=== PATIENT | female | born 1965 | race American Indian/Alaskan Native ===

== ENCOUNTER 2020-03-13 10:32 | Inpatient (IN) | payer SELFPAY ==
--- NOTE | 2020-03-13 10:59 | Cat Scan Report ---
NONENHANCED CT SCAN OF THE HEAD: INDICATION / CLINICAL INFORMATION: 54 years Female; not available TECHNIQUE: Routine CT head without contrast. All CT scans at this location are performed using CT dos e reduction for ALARA by means of automated exposure control. COMPARISON: None. FINDINGS: BRAIN / INTRACRANIAL CONTENTS: No acute hemorrhage, mass effect, midline shift, hydrocephalus, or ac [place], large territorial infarct. No chronic infarct or focal atrophy. Normal brain volume and ventricu lar/sulcal size for age. Subtle patchy white matter low-attenuation seen around the atria of the late ral ventricles probably due to chronic small vessel disease. CRANIOCERVICAL JUNCTION: No significant abnormality. ORBITS: No significant abnormality of visualized orbits. SINUSES / MASTOIDS: No significant abnormality of the visualized paranasal sinuses or mastoid air lashawn ls. ADDITIONAL FINDINGS: None. IMPRESSION: No acute focal parenchymal lesion in the brain Signer Name: Debbie Larose MD Signed: 03/13/2020 10:55 AM Workstation Name: [id number]
[2020-03-13 11:09] LABS: Basophils # (Auto) 0.1 K/mm3 (0.0-0.1); Basophils % (Auto) 0.8 % (0.0-1.8); Hemoglobin 11.1 gm/dl (10.1-14.3); Lymphocytes # (Auto) 1.1 K/mm3 (1.2-5.4); Lymphocytes % (Auto) 15.8 % (13.4-35.0); Mean Corpuscular HGB Conc 32 % (30-34); Mean Corpuscular Volume 93 fl (79-97); Monocytes # (Auto) 0.2 K/mm3 (0.0-0.8); Monocytes % (Auto) 3.1 % (0.0-7.3); Platelet Count 482 K/mm3 (140-440); Red Blood Count 3.77 M/mm3 (3.65-5.03)
[2020-03-13] MEDS ORDERED: ASPIRIN 325 MG TAB PO ONE (11:12)
--- NOTE | 2020-03-13 11:13 | Consultation ---
History of Present Illness Consult date: 03/13/20 History of present illness: [facility] Tele[facility] Consult Services Date of Service: 03/13/2020 10:45:25 Impression: Rule Out Acute Ischemic Stroke Right Hemispheric Infarct MCA Distribution Infarct subcortical. Only known CV risk factor is age; she stopped aspirin two weeks ago for breast bx on 03/03. Comments/Sign-Out: She is outside window for TPA. Presentation is not suggestive of LVO. Metrics: Last Known Well: 03/12/2020 22:00:00 [facility] Notification Time: 03/13/2020 10:45:00 Arrival Time: 03/13/2020 10:32:00 Stamp Time: 03/13/2020 10:45:25 Time First Login Attempt: 03/13/2020 10:48:30 Video Start Time: 03/13/2020 10:50:42 Symptoms: right side weak, slurred speech NIHSS Start Assessment Time: 03/13/2020 10:53:31 Patient is not a candidate for tPA. Patient was not deemed candidate for tPA thrombolytics because of Last Well Known Above 4.5 Hours. Video End Time: 03/13/2020 11:04:24 CT head showed no acute hemorrhage or acute core infarct. Clinical Presentation is not Suggestive of Large Vessel Occlusive Disease ED Physician notified of diagnostic impression and management plan on 03/13/2020 11:04:27 Our recommendations are outlined below. Recommendations: Activate Stroke Protocol Admission/Order Set Stroke/Telemetry Floor Neuro Checks Bedside Swallow Eval DVT Prophylaxis IV Fluids, Normal Saline Head of Bed 30 Degrees Euglycemia and Avoid Hyperthermia (PRN Acetaminophen) defer to primary team to seek clearance with physician who did breast bx to resume aspirin 81mg qd Routine Consultation with Inhouse Neurology for Follow up Care Sign Out: Discussed with Emergency Department Provider History of Present Illness: Patient is a 54 year old Female. Patient was brought by EMS for symptoms of right side weak, slurred speech right handed woman current dx of intraductal papilloma of left breast s/p breast bx on 03/03 presents to ED for right side weakness/numbness, slurred speech noted at 22::00 yesterday. She was well just before 22:00. She denies hx of CAD, CV dz, HTN, DM, HLD. She was on aspirin daily empirically but stopped this two weeks ago for breast bx. Examination: BP(168/90), Blood Glucose(351) 1A: Level of Consciousness - Alert; keenly responsive + 0 1B: Ask Month and Age - Both Questions Right + 0 1C: Blink Eyes & Squeeze Hands - Performs Both Tasks + 0 2: Test Horizontal Extraocular Movements - Normal + 0 3: Test Visual [place] - No Visual Loss + 0 4: Test Facial Palsy (Use Grimace if Obtunded) - Normal symmetry + 0 5A: Test Left Arm Motor Drift - No Drift for 10 Seconds + 0 5B: Test Right Arm Motor Drift - Drift, but doesn't hit bed + 1 6A: Test Left Leg Motor Drift - No Drift for 5 Seconds + 0 6B: Test Right Leg Motor Drift - Drift, but doesn't hit bed + 1 7: Test Limb Ataxia (FNF/Heel-Contreras) - Ataxia in 1 Limb + 1 8: Test Sensation - Normal; No sensory loss + 0 9: Test Language/Aphasia - Normal; No aphasia + 0 10: Test Dysarthria - Mild-Moderate Dysarthria: Slurring but can be understood + 1 11: Test Extinction/Inattention - No abnormality + 0 NIHSS Score: 4 Patient/Family was informed the Neurology Consult would happen via TeleHealth consult by way of interactive audio and video telecommunications and consented to receiving care in this manner. Due to the immediate potential for life-threatening deterioration due to underlying acute neurologic illness, I spent 20 minutes providing critical care. This time includes time for face to face visit via telemedicine, review of medical records, imaging studies and discussion of findings with providers, the patient and/or family. Dr Lacy Lao [facility] Case [id number] Medications and Allergies Allergies Allergy/AdvReac Type Severity Reaction Status Date / Time hydrocodone Allergy Seizure Verified 03/13/20 10:38 Physical Examination - Vital Signs Vital Signs: Vital Signs Temp Pulse Resp BP Pulse Ox 98.0 F 100 H 18 158/89 100 03/13/20 10:35 03/13/20 10:35 03/13/20 10:35 03/13/20 10:35 03/13/20 10:35 Results - Laboratory Findings CBC and BMP: 03/13/20 10:48 Abnormal Lab Findings: Abnormal Labs 03/13/20 10:48 RDW 17.0 H Plt Count 482 H Lymph # 1.1 L Seg Neutrophils % 80.3 H
[2020-03-13] MEDS ORDERED: ONDANSETRON 4 MG/2 ML INJ IV ONE (11:15)
--- NOTE | 2020-03-13 11:17 | Emergency Department Report ---
HPI - General Chief Complaint: Neuro Symptoms/Deficit Time Seen by Provider: 03/13/20 10:54 - HPI HPI: Room 2 The patient is a 54-year-old female present with a chief complaint of right- sided weakness. Patient states her symptoms began last night at approximately 22: 00 with weakness and tingling of the right arm and right leg. Patient states she also experienced dysarthria. ED Past Medical Hx - Past Medical History Hx Diabetes: Yes - Surgical History Hx Breast Surgery: Yes (Left breast biopsy) - Family History Family history: no significant - Social History Smoking Status: Never Smoker Substance Use Type: None (Denies illicit drug use) ED Review of Systems ROS: Stated complaint: POSS STROKE Other details as noted in HPI Constitutional: no symptoms reported Eyes: denies: eye pain ENT: denies: throat pain Respiratory: no symptoms reported Cardiovascular: denies: chest pain Endocrine: no symptoms reported Gastrointestinal: denies: abdominal pain Genitourinary: denies: dysuria Musculoskeletal: denies: back pain Neurological: weakness, paresthesias Physical Exam - Physical Exam Vital Signs: Vital Signs 03/13/20 10:35 Temperature 98.0 F Pulse Rate 100 H Respiratory 18 Rate Blood Pressure 158/89 [Right] O2 Sat by Pulse 100 Oximetry Physical Exam: GENERAL: The patient is well-developed well-nourished female lying on stretcher not appearing to be in acute distress. [] HEENT: Normocephalic. Atraumatic. Extraocular motions are intact. Patient has moist mucous membranes. NECK: Supple. Trachea midline CHEST/LUNGS: Clear to auscultation. There is no respiratory distress noted. HEART/CARDIOVASCULAR: Regular. There is no tachycardia. There is no gallop rub or murmur. ABDOMEN: Abdomen is soft, nontender. Patient has normal bowel sounds. There is no abdominal distention. SKIN: There is no rash. There is no edema. There is no diaphoresis. NEURO: The patient is awake, alert, and oriented. The patient is cooperative. Cranial nerves II through XII grossly intact. The patient has normal speech. Patient exhibits greater difficulty flexing right lower extremity at the hip and knee when compared to the left. Patient is unable to raise right upper extremity above her head secondary to weakness MUSCULOSKELETAL: There is no evidence of acute injury. ED Course Vital Signs 03/13/20 10:35 Temperature 98.0 F Pulse Rate 100 H Respiratory 18 Rate Blood Pressure 158/89 [Right] O2 Sat by Pulse 100 Oximetry ED Medical Decision Making - Lab Data Result diagrams: 03/13/20 10:48 03/13/20 10:48 Laboratory Tests 03/13/20 03/13/20 03/13/20 10:48 10:48 10:48 WBC 7.1 RBC 3.77 Hgb 11.1 Hct 35.0 MCV 93 MCH 30 MCHC 32 RDW 17.0 H Plt Count 482 H Lymph % (Auto) 15.8 [place] % (Auto) 3.1 Eos % (Auto) 0.0 Baso % (Auto) 0.8 Lymph # 1.1 L [place] # 0.2 Eos # 0.0 Baso # 0.1 Seg Neutrophils % 80.3 H Seg Neutrophils # 5.7 PT 12.5 INR 0.95 APTT 22.9 L Sodium 134 L Potassium 4.5 Chloride 95.6 L Carbon Dioxide 20 L Anion Gap 23 BUN 11 Creatinine 0.7 Estimated GFR > 60 BUN/Creatinine Ratio 16 Glucose 377 H Calcium 10.4 H Troponin T < 0.010 - EKG Data -: EKG Interpreted by Me EKG shows normal: sinus rhythm Rate: normal - EKG Data When compared to previous EKG there are: previous EKG unavailable Interpretation: other (No ischemic changes seen) - Differential Diagnosis CVA Critical care attestation.: If time is entered above; I have spent that time in minutes in the direct care of this critically ill patient, excluding procedure time. ED Disposition Clinical Impression: CVA (cerebral vascular accident) Disposition: -09 OP ADMIT IP TO THIS HOSP Is pt being admited?: Yes Does the pt Need Aspirin: Yes Condition: Fair Referrals: CLOVIS SABA MD [Primary Care Provider] - 3-5 Days Time of Disposition: 11:47 (Hospitalist paged)
[2020-03-13 11:28] LABS: BUN/Creatinine Ratio 16; Blood Urea Nitrogen 11 mg/dL (7-17); Calcium 10.4 mg/dL (8.4-10.2); Hemolysis Index 2
[2020-03-13 11:44] LABS: INR 0.95 (0.87-1.13)
[2020-03-13 11:45] LABS: Partial Thromboplastin Time 22.9 Sec. (24.2-36.6)
[2020-03-13] MEDS ORDERED: INSULIN REGULAR, HUMAN 100 UNITS/1 ML IV ONE (12:02)
[2020-03-13] MEDS ORDERED: DEXTROSE 50% IN WATER (25GM) 50 ML SYRINGE IV PRN ×2 (12:16→15:22)
[2020-03-13] MEDS ORDERED: INSULIN REGULAR, HUMAN 100 UNITS/1 ML ONE (12:16)
[2020-03-13] MEDS ORDERED: SENNOSIDES 8.6 MG TAB PO PRN (12:16)
[2020-03-13] MEDS ORDERED: ONDANSETRON 4 MG/2 ML INJ IV PRN (12:16)
[2020-03-13] MEDS ORDERED: PROMETHAZINE 25 MG RECT SUPP PR PRN (12:16)
[2020-03-13] MEDS ORDERED: ACETAMINOPHEN 325 MG TAB PO PRN ×2 (12:16→12:21)
[2020-03-13] MEDS ORDERED: MAGNESIUM HYDROXIDE (MOM) ORAL LIQD UDC PO PRN (12:16)
[2020-03-13] MEDS ORDERED: ALBUTEROL 2.5 MG/3 ML NEBU IH PRN (12:16)
--- NOTE | 2020-03-13 12:21 | History and Physical Report ---
History of Present Illness Date of examination: 03/13/20 Date of admission: 03/13/20 11:49 Chief complaint: Right-sided weakness. Slurred speech. Left facial droop History of present illness: Patient is a 54-year-old female with past medical history of according to the patient borderline diabetes not on any medication who presented to the ER with complaint of right-sided weakness and slurred speech and also left facial droop. Per the patient this started 10 PM last night she thought she was not feeling well but decided to take a nap. On waking up this morning she had difficulty finding words she noted his speech was slurred and she had both right upper and lower extremity weakness. She presented to the ER for evaluation was noted to have a left facial droop and was recommended for admission for possible CVA. Of note the patient has been on 160 mg of aspirin as she states that she takes 2 daily tablets at home but had stopped this for breast biopsy was planned for March 03. She is not clear to me why she is on this dose of aspirin at home. At this point she denies any other issues she reports some improvement in her dysarthria. But still with weakness and tingling and on the right upper and lower extremity. Past History Past Medical History: diabetes Past Surgical History: hysterectomy, Other (Breast biopsy) Social history: no significant social history Family history: no significant family history Medications and Allergies Allergies Allergy/AdvReac Type Severity Reaction Status Date / Time hydrocodone Allergy Seizure Verified 03/13/20 10:38 Active Meds: Active Medications Acetaminophen (Tylenol) 650 mg PO Q4H PRN PRN Reason: Pain, Mild (1-3) Bisacodyl (Dulcolax) 10 mg AR QDAY PRN PRN Reason: Constipation Magnesium Hydroxide (Milk Of Magnesia) 30 ml PO Q4H PRN PRN Reason: Constipation Sodium Chloride (Sodium Chloride Flush Syringe 10 Ml) 10 ml INJ PRN PRN PRN Reason: LINE FLUSH Review of Systems All systems: negative Constitutional: weight loss (She has lost 15 pounds purposefully), weakness (Right upper and lower extremity), no weight gain, no fever, no chills, no sweats, no fatigue Cardiovascular: no chest pain, no rapid/irregular heart beat Respiratory: no cough with sputum, no shortness of breath, no dyspnea on exertion, no congestion Musculoskeletal: arm numbness/tingling (Right-sided), leg numbness/tingling (Right sided), no shooting leg pain, no frequent falls Neurological: weakness, parathesias (Right sided), numbness ( right-sided right-sided), change in speech, sensory deficit (Right-sided) Psychiatric: no anxiety, no memory loss, no change in sleep habits Exam - Physical Exam Narrative exam: VITAL SIGNS: Reviewed. GENERAL: The patient appears normally developed, Vital signs as documented. HEAD: No signs of head trauma. EYES: Pupils are equal. Extraocular motions intact. EARS: Hearing grossly intact. MOUTH: Oropharynx is normal. NECK: No adenopathy, no JVD. CHEST: Chest with clear breath sounds bilaterally. No wheezes, rales, or rhonchi. CARDIAC: Regular rate and rhythm. S1 and S2, without murmurs, gallops, or r ubs. VASCULAR: No Edema. Peripheral pulses normal and equal in all extremities. ABDOMEN: Soft, non tender and non distended. No rebound or guarding, and no masses palpated. Bowel Sounds normal. MUSCULOSKELETAL: Good range of motion of all major joints. Extremities without clubbing, cyanosis or edema. NEUROLOGIC EXAM: Alert and oriented x 3 4/5 motor strength in the right upper and lower extremity 5/5 on the left. Dysarthric speech with notable left facial droop however mild . Follows commands. PSYCHIATRIC: Mood normal. SKIN: detail exam as documented in skin assessment - Constitutional Vitals: Temp Pulse Resp BP Pulse Ox 98.0 F 95 H 16 168/91 100 03/13/20 10:35 03/13/20 11:14 03/13/20 11:14 03/13/20 11:14 03/13/20 11:14 HEART Score - HEART Score Troponin: Troponin T < 0.010 ng/mL (0.00-0.029) 03/13/20 10:48 Results - Labs CBC & Chem 7: 03/13/20 10:48 03/13/20 10:48 Labs: Laboratory Last Values WBC 7.1 K/mm3 (4.5-11.0) 03/13/20 10:48 RBC 3.77 M/mm3 (3.65-5.03) 03/13/20 10:48 Hgb 11.1 gm/dl (10.1-14.3) 03/13/20 10:48 Hct 35.0 % (30.3-42.9) 03/13/20 10:48 MCV 93 fl (79-97) 03/13/20 10:48 MCH 30 pg (28-32) 03/13/20 10:48 MCHC 32 % (30-34) 03/13/20 10:48 RDW 17.0 % (13.2-15.2) H 03/13/20 10:48 Plt Count 482 K/mm3 (140-440) H 03/13/20 10:48 Lymph % (Auto) 15.8 % (13.4-35.0) 03/13/20 10:48 [place] % (Auto) 3.1 % (0.0-7.3) 03/13/20 10:48 Eos % (Auto) 0.0 % (0.0-4.3) 03/13/20 10:48 Baso % (Auto) 0.8 % (0.0-1.8) 03/13/20 10:48 Lymph # 1.1 K/mm3 (1.2-5.4) L 03/13/20 10:48 [place] # 0.2 K/mm3 (0.0-0.8) 03/13/20 10:48 Eos # 0.0 K/mm3 (0.0-0.4) 03/13/20 10:48 Baso # 0.1 K/mm3 (0.0-0.1) 03/13/20 10:48 Seg Neutrophils % 80.3 % (40.0-70.0) H 03/13/20 10:48 Seg Neutrophils # 5.7 K/mm3 (1.8-7.7) 03/13/20 10:48 PT 12.5 Sec. (12.2-14.9) 03/13/20 10:48 INR 0.95 (0.87-1.13) 03/13/20 10:48 APTT 22.9 Sec. (24.2-36.6) L 03/13/20 10:48 Sodium 134 mmol/L (137-145) L 03/13/20 10:48 Potassium 4.5 mmol/L (3.6-5.0) 03/13/20 10:48 Chloride 95.6 mmol/L (98-107) L 03/13/20 10:48 Carbon Dioxide 20 mmol/L (22-30) L 03/13/20 10:48 Anion Gap 23 mmol/L 03/13/20 10:48 BUN 11 mg/dL (7-17) 03/13/20 10:48 Creatinine 0.7 mg/dL (0.7-1.2) 03/13/20 10:48 Estimated GFR > 60 ml/min 03/13/20 10:48 BUN/Creatinine Ratio 16 % 03/13/20 10:48 Glucose 377 mg/dL (65-100) H 03/13/20 10:48 POC Glucose 353 (70-105) H 03/13/20 12:14 Calcium 10.4 mg/dL (8.4-10.2) H 03/13/20 10:48 Troponin T < 0.010 ng/mL (0.00-0.029) 03/13/20 10:48 - Imaging and Cardiology CT Scan - head: image reviewed (No acute pathology) MRI - head: pending Assessment and Plan Assessment and plan: 54-year-old female with past medical history of diabetes undiagnosed not on any medication presenting to the ED with right upper and lower extremity weakness, dysarthria. Recently stopped aspirin 162 mg a week ago for a breast biopsy that was done on March 03. Unfortunately had not restarted this. Not sure why she was on aspirin in the first place. Right hemiparesis Strongly suspect CVA Diabetes mellitus with hyperglycemia new diagnosis Status post hysterectomy Recent breast biopsy Morbidly obese Plan of care. Admit to telemetry Stroke protocol Aspirin, statin therapy Neurology consult Obtain MRI of the head and MRA of the head and neck carotid ultrasound and echocardiogram check lipid profile Check A1c start on sliding scale coverage. Diabetic education PT OT evaluation and treat Plan of care discussed in detail with the patient Advance Directives: Yes Plan of care discussed with patient/family: Yes
--- NOTE | 2020-03-13 13:43 | Vascular Lab Report ---
"DUPLEX DOPPLER ULTRASOUND CAROTID, BILATERAL INDICATION: Stroke. Left-sided weakness. COMPARISON: None available. FINDINGS: RIGHT CAROTID: No significant atherosclerotic plaque. CCA velocity: 86.0 cm/sec. ICA peak systolic velocity: 105.0 cm/sec. ICA/CCA PSV Ratio: 1.2. Right Vertebral Artery: Antegrade flow. LEFT CAROTID: No significant atherosclerotic plaque. CCA velocity: 110.4 cm/sec. ICA peak systolic velocity: 84.2 cm/sec. ICA/CCA PSV Ratio: 0.8. Left Vertebral Artery: Antegrade flow. IMPRESSION: 1. Right Internal Carotid Artery: Normal. 2. Left Internal Carotid Artery: Normal. Velocity criteria are extrapolated from diameter data as defined by the Society of Radiologists in Ul trasound Consensus Conference, Radiology 2003; 229;340-346. Degree of || ICA PSV || Plaque || ICA/CCA Stenosis (%) || (cm/sec) || estimate (%) || PSV Ratio - Normal...............<125..............None.................<2.0 - <50....................<125..............<50....................<2.0 - 50-69................125-230.........>50....................2.0-4.0 - >70 but <100....>230..............>50....................>4.0 - Near...................High, low, .....visible................variable occlusion or none - Total...................None.............visible;................N/A occlusion no lumen Signer Name: Guero Reeves MD Signed: 03/13/2020 1:39 PM Workstation Name: [id number]"
[2020-03-13] MEDS: ONDANSETRON 4 MG/2 ML INJ IV PRN (14:15)
--- NOTE | 2020-03-13 15:05 | Consultation ---
History of Present Illness Consult date: 03/13/20 Reason for Consult: Right sided weakness, slurred speech Chief complaint: Right sided weakness, slurred speech History of present illness: Patient is a 54 y/o woman w/ a h/o DM. She presents today after having onset of right sided weakness and slurred speech, which began at 10pm last night. She was taking ASA 81mg daily at home, however had stopped this for a breast biopsy on March 03. She was awake at time of onset of symptoms, which she describes as weakness and numbness of the RUE and RLE. She also had slurred speech, however was able to find words. Today, she states that she continues to experience Rt. sided weakness, however it has slightly improved since yesterday. Past History Past Medical History: diabetes Past Surgical History: hysterectomy, Other (breast biopsy March 03, 2020) Social history: no significant social history Family history: diabetes, hypertension Medications and Allergies Allergies Allergy/AdvReac Type Severity Reaction Status Date / Time hydrocodone Allergy Seizure Verified 03/13/20 10:38 Active Meds: Active Medications Acetaminophen (Tylenol) 650 mg PO Q4H PRN PRN Reason: Pain, Mild (1-3) Albuterol (Proventil) 2.5 mg IH Q3HRT PRN PRN Reason: Shortness Of Breath Aspirin (Aspirin) 325 mg PO QDAY CEFERINO Atorvastatin Calcium (Lipitor) 40 mg PO QHS CEFERINO Bisacodyl (Dulcolax) 10 mg NV QDAY PRN PRN Reason: Constipation Dextrose (D50w (25gm) Syringe) 50 ml IV Q30MIN PRN; Protocol PRN Reason: Hypoglycemia Famotidine (Pepcid) 10 mg PO BID CEFERINO Magnesium Hydroxide (Milk Of Magnesia) 30 ml PO Q4H PRN PRN Reason: Constipation Metoclopramide HCl (Reglan) 10 mg PO Q6H PRN PRN Reason: Nausea And Vomiting Ondansetron HCl (Zofran) 4 mg IV Q8H PRN PRN Reason: Nausea And Vomiting Last Admin: 03/13/20 14:15 Dose: 4 mg Documented by: Promethazine HCl (Phenergan) 25 mg NV Q6H PRN PRN Reason: Nausea And Vomiting Senna (Senokot) 8.6 mg PO Q12H PRN PRN Reason: Laxative Effect Sodium Chloride (Sodium Chloride Flush Syringe 10 Ml) 10 ml IV PRN PRN PRN Reason: LINE FLUSH Sodium Chloride (Sodium Chloride Flush Syringe 10 Ml) 10 ml IV BID CEFERINO Review of Systems All systems: negative Neurological: weakness, numbness, change in speech Physical Examination - Vital Signs Vital Signs: Vital Signs Temp Pulse Resp BP Pulse Ox 98.0 F 100 H 18 158/89 100 03/13/20 10:35 03/13/20 10:35 03/13/20 10:35 03/13/20 10:35 03/13/20 10:35 - Physical Exam Narrative exam: Patient is alert, awake, oriented x4, follows complex commands. No dysarthria or aphasia noted. PERRL, EOMI, VFF, tongue midline, decreased on Rt. to LT, no facial weakness noted. 5/5 strength in LUE/LLE, 3/5 in RUE, 3/5 in RLE. Decreased on Right to light touch. Bilaterally intact to FTN and HTS, however limited due to Rt. sided weakness. - Level of Consciousness 1a. Level of Consciousness: alert/keenly responsive - LOC Questions 1b. LOC Questions: answers both correctly - LOC Command 1c. LOC Commands: performs tasks correctly - Best Gaze 2. Best Gaze: normal - Visual 3. Visual: no visual loss - Facial Palsy 4. Facial Palsy: normal symmetrical movement - Motor Arm 5a. Motor Arm Left: no drift 5b. Motor Arm Right: drift - Motor Leg 6a. Motor Leg Left: no drift 6b. Motor Leg Right: drift - Limb Ataxia 7. Limb Ataxia: absent - Sensory 8. Sensory: mild/moderate sensory loss - Best Language 9. Best Language: no aphasia - Dysarthria 10. Dysarthria: normal - Extinction and Inattention 11. Extinction/Inattention: no abnormality - Scoring Total Score: 3 Stroke Severity: Minor Stroke Results - Laboratory Findings CBC and BMP: 03/13/20 10:48 03/13/20 10:48 Abnormal Lab Findings: Abnormal Labs 03/13/20 03/13/20 03/13/20 10:48 10:48 10:48 RDW 17.0 H Plt Count 482 H Lymph # 1.1 L Seg Neutrophils % 80.3 H APTT 22.9 L Sodium 134 L Chloride 95.6 L Carbon Dioxide 20 L Glucose 377 H POC Glucose Calcium 10.4 H 06/19/20 12:14 RDW Plt Count Lymph # Seg Neutrophils % APTT Sodium Chloride Carbon Dioxide Glucose POC Glucose 353 H Calcium Assessment and Plan Patient is a 54 y/o woman w/ a h/o DM, who p/w right sided weakness/numbness and slurred speech. According to the patient's clinical findings, it is likely that the patient has had an acute ischemic stroke. Plan: 1. Stroke: - MRI brain: Pending - MRA head/neck: pending - CT head: No acute intracranial abnormalities - Echo: Pending. - Cont. ASA 81mg daily. - Cont. statin. LDL goal <70 - Telemetry monitoring while in house - PT/OT/ST - DVT Ppx: Recommend lovenox 2. Hypertension: - Recommend BP goal of <220/120 to allow for permissive HTN for first 24-48 hours. Can target normotension after that. - Will sign off, as I am not covering neurology service over the weekend. Please consult neurologist covering the service over the weekend for further neurologic monitoring and management. Thank you for allowing me to take part in the care of this patient. Reji Wen MD Neurology This clinical encounter was provided via live telemedicine platform. Consultative service was provided for neurology to support local providers. The Acute Teleneurology team should be contacted with any neurologic worsening or clinical changes, new test results, or new patient history that is reported to or discovered by the local team following completion of the teleneurology consultation, specifically that which has the potential to impact the consultative recommendations. Patient/Family was informed the Neurology Consult would happen via TeleHealth consult by way of interactive audio and video telecommunications and consented to receiving care in this manner. Due to the potential for life-threatening deterioration due to underlying neurologic illness, and limited resources available for patient care, telemedicine was used as means of patient care. Telemedicine consultation is limited in the extent of physical exam that can be virtually provided. Time spent evaluating patient includes time for face to face visit via telemedicine, review of medical records, imaging studies and discussion of findings with providers, the patient and/or family.
--- NOTE | 2020-03-13 16:27 | Magnetic Resonance Report ---
MRA HEAD WITHOUT CONTRAST HISTORY: Stroke COMPARISON: None. TECHNIQUE: Routine MRA of the head is performed. 3-D/MIP reformats postprocessed. CONTRAST: None. FINDINGS: Intracranial vertebral arteries: No significant abnormality. Right PICA normal Basilar artery: No significant abnormality. Posterior cerebral arteries: No significant abnormality. Intracranial internal carotid arteries: No significant abnormality. Anterior cerebral arteries: No significant abnormality. Middle cerebral arteries: No significant abnormality. Variants and anomalies:None Additional findings: None. IMPRESSION: No significant abnormality. Signer Name: Debbie Larose MD Signed: 03/13/2020 4:23 PM Workstation Name: [id number]
--- NOTE | 2020-03-13 16:53 | Magnetic Resonance Report ---
NONENHANCED MR SCAN OF THE BRAIN: INDICATION / CLINICAL INFORMATION: Right-sided weakness; slurred speech TECHNIQUE: Multiplanar, multisequence MR images of the brain obtained. COMPARISON: CT scan of the head from 03/13/2020 FINDINGS: BRAIN / INTRACRANIAL CONTENTS: Abnormal MRI scan Left paramedian pontine subacute infarction; more than 8 hours old (increased T2 signal intensity) bu t less than 3 days old (low ADC values); no hemorrhagic changes Midbrain, medulla in the cerebellar hemispheres are normal. Confluent patchy periventricular white matter hyperintensities seen around atria of the lateral ventr icles. Deep hemispheric white matter lesions ([place] 1) seen. These are due to chronic small vessel disease. CRANIOCERVICAL JUNCTION: No significant abnormality. VASCULAR FLOW-VOIDS: No significant abnormality. ORBITS: No significant abnormality of visualized orbits. SINUSES / MASTOIDS: No significant abnormality of visualized sinuses and mastoid air cells. ADDITIONAL FINDINGS: None. IMPRESSION: Subacute left paramedian pontine infarction Signer Name: Debbie Larose MD Signed: 03/13/2020 4:48 PM Workstation Name: [id number]
--- NOTE | 2020-03-13 16:58 | Magnetic Resonance Report ---
MRA NECK WITHOUT CONTRAST INDICATION / CLINICAL INFORMATION: Right-sided weakness and slurred speech. TECHNIQUE: 3-D/MIP reformats postprocessed. Percentage stenosis is determined by direct quantitative measurement s of distal internal carotid artery diameter compared with normal reference segments or by criteria s imilar to NASCET where applicable. COMPARISON: None available. FINDINGS: MRA NECK: Aortic arch: No significant abnormality. Cervical vertebral arteries: No significant abnormality. Common carotid arteries: No significant abnormality. Cervical internal carotid arteries: No significant abnormality. Additional findings: None. IMPRESSION: 1. No significant stenosis or large vessel occlusion in the neck arteries. Signer Name: Don Rob MD Signed: 03/13/2020 4:54 PM Workstation Name: [id number]
[2020-03-13] MEDS: INSULIN LISPRO 100 UNIT/ML SUB-Q SCH ×2 (17:55→21:42)
[2020-03-13] MEDS: METOCLOPRAMIDE 10 MG TAB PO PRN (21:41)
[2020-03-13] MEDS: FAMOTIDINE 10 MG TAB PO SCH (21:41)
[2020-03-13] MEDS ORDERED: INSULIN GLARGINE 100 UNITS/ML SUB-Q SCH (22:00)
--- NOTE | 2020-03-14 08:01 | Progress Note ---
Assessment and Plan Assessment and plan: 54-year-old female with past medical history of diabetes undiagnosed not on any medication presenting to the ED with right upper and lower extremity weakness, dysarthria. Recently stopped aspirin 162 mg a week ago for a breast biopsy that was done on March 03. Unfortunately had not restarted this. Not sure why she was on aspirin in the first place. MRI of the head shows a subacute left paramedian pontine infarct. MRA MRI of the neck. IMPRESSION: 1. No significant stenosis or large vessel occlusion in the neck arteries 03/14: Stroke identified. Continue physical therapy evaluation await echocardiogram prior to discharge. Adjust insulin therapy.. Continue antiplatelets and statin therapy. Right hemiparesis Strongly suspect CVA Diabetes mellitus with hyperglycemia new diagnosis Status post hysterectomy Recent breast biopsy Morbidly obese Plan of care. Admit to telemetry Stroke protocol Aspirin, statin therapy Neurology consult Obtain MRI of the head and MRA of the head and neck carotid ultrasound and echocardiogram check lipid profile Check A1c start on sliding scale coverage. Diabetic education PT OT evaluation and treat Plan of care discussed in detail with the patient Hospitalist Physical - Constitutional Vitals: Temp Pulse Resp BP Pulse Ox 98.4 F 89 18 115/73 96 03/14/20 07:54 03/14/20 07:54 03/14/20 07:54 03/14/20 07:54 03/14/20 07:54 HEART Score - HEART Score Troponin: Troponin T < 0.010 ng/mL (0.00-0.029) 03/13/20 10:48 Results - Labs CBC & Chem 7: 03/14/20 07:46 03/14/20 07:46 Labs: Laboratory Last Values WBC 7.1 K/mm3 (4.5-11.0) 03/13/20 10:48 RBC 3.77 M/mm3 (3.65-5.03) 03/13/20 10:48 Hgb 11.1 gm/dl (10.1-14.3) 03/13/20 10:48 Hct 35.0 % (30.3-42.9) 03/13/20 10:48 MCV 93 fl (79-97) 03/13/20 10:48 MCH 30 pg (28-32) 03/13/20 10:48 MCHC 32 % (30-34) 03/13/20 10:48 RDW 17.0 % (13.2-15.2) H 03/13/20 10:48 Plt Count 482 K/mm3 (140-440) H 03/13/20 10:48 Lymph % (Auto) 15.8 % (13.4-35.0) 03/13/20 10:48 Desha % (Auto) 3.1 % (0.0-7.3) 03/13/20 10:48 Eos % (Auto) 0.0 % (0.0-4.3) 03/13/20 10:48 Baso % (Auto) 0.8 % (0.0-1.8) 03/13/20 10:48 Lymph # 1.1 K/mm3 (1.2-5.4) L 03/13/20 10:48 Desha # 0.2 K/mm3 (0.0-0.8) 03/13/20 10:48 Eos # 0.0 K/mm3 (0.0-0.4) 03/13/20 10:48 Baso # 0.1 K/mm3 (0.0-0.1) 03/13/20 10:48 Seg Neutrophils % 80.3 % (40.0-70.0) H 03/13/20 10:48 Seg Neutrophils # 5.7 K/mm3 (1.8-7.7) 03/13/20 10:48 PT 12.5 Sec. (12.2-14.9) 03/13/20 10:48 INR 0.95 (0.87-1.13) 03/13/20 10:48 APTT 22.9 Sec. (24.2-36.6) L 03/13/20 10:48 Sodium 134 mmol/L (137-145) L 03/13/20 10:48 Potassium 4.5 mmol/L (3.6-5.0) 03/13/20 10:48 Chloride 95.6 mmol/L (98-107) L 03/13/20 10:48 Carbon Dioxide 20 mmol/L (22-30) L 03/13/20 10:48 Anion Gap 23 mmol/L 03/13/20 10:48 BUN 11 mg/dL (7-17) 03/13/20 10:48 Creatinine 0.7 mg/dL (0.7-1.2) 03/13/20 10:48 Estimated GFR > 60 ml/min 03/13/20 10:48 BUN/Creatinine Ratio 16 % 03/13/20 10:48 Glucose 377 mg/dL (65-100) H 03/13/20 10:48 POC Glucose 296 (70-105) H 03/13/20 21:38 Calcium 10.4 mg/dL (8.4-10.2) H 03/13/20 10:48 Troponin T < 0.010 ng/mL (0.00-0.029) 03/13/20 10:48 Anaya/IV: Voiding Method Toilet IV Catheter Type [Left INT / Saline Lock Antecubital] Active Medications - Current Medications Current Medications: Generic Name Dose Route Start Last Admin Trade Name Freq PRN Reason Stop Dose Admin Acetaminophen 650 mg 03/13/20 12:21 Tylenol PO Q4H PRN Pain, Mild (1-3) Albuterol 2.5 mg 03/13/20 12:16 Proventil IH Q3HRT PRN Shortness Of Breath Aspirin 325 mg 03/14/20 10:00 Aspirin PO QDAY CEFERINO Atorvastatin Calcium 40 mg 03/13/20 22:00 03/13/20 21:41 Lipitor PO 40 mg QHS CEFERINO Administration Bisacodyl 10 mg 03/13/20 12:16 Dulcolax TX QDAY PRN Constipation Dextrose 50 ml 03/13/20 12:16 D50w (25gm) Syringe IV Q30MIN PRN Hypoglycemia Protocol Dextrose 50 ml 03/13/20 15:22 D50w (25gm) Syringe IV Q30MIN PRN Hypoglycemia Protocol Famotidine 10 mg 03/13/20 22:00 03/13/20 21:41 Pepcid PO 10 mg BID CEFERINO Administration Insulin Glargine 15 units 03/13/20 22:00 03/13/20 21:42 Lantus SUB-Q 15 units QHS CEFERINO Administration Insulin Human Lispro 0 unit 03/13/20 16:30 03/13/20 21:42 Humalog SUB-Q 6 unit ACHS CEFERINO Administration Protocol Magnesium Hydroxide 30 ml 03/13/20 12:16 Milk Of Magnesia PO Q4H PRN Constipation Metoclopramide HCl 10 mg 03/13/20 12:16 03/13/20 21:41 Reglan PO 10 mg Q6H PRN Administration Nausea And Vomiting Ondansetron HCl 4 mg 03/13/20 12:16 03/13/20 14:15 Zofran IV 4 mg Q8H PRN Administration Nausea And Vomiting Promethazine HCl 25 mg 03/13/20 12:16 Phenergan TX Q6H PRN Nausea And Vomiting Senna 8.6 mg 03/13/20 12:16 Senokot PO Q12H PRN Laxative Effect Sodium Chloride 10 ml 03/13/20 12:16 Sodium Chloride Flush Syringe 10 Ml IV PRN PRN LINE FLUSH Sodium Chloride 10 ml 03/13/20 22:00 03/13/20 21:42 Sodium Chloride Flush Syringe 10 Ml IV 10 ml BID CEFERINO Administration
[2020-03-14 08:15] LABS: Basophils % (Auto) 0.2 % (0.0-1.8); Eosinophils % (Auto) 0.5 % (0.0-4.3); Hematocrit 30.9 % (30.3-42.9); Hemoglobin 10.1 gm/dl (10.1-14.3); Lymphocytes # (Auto) 1.5 K/mm3 (1.2-5.4); Lymphocytes % (Auto) 31.8 % (13.4-35.0); Mean Corpuscular HGB Conc 33 % (30-34); Mean Corpuscular Volume 92 fl (79-97); Monocytes # (Auto) 0.3 K/mm3 (0.0-0.8); Monocytes % (Auto) 5.8 % (0.0-7.3); Platelet Count 392 K/mm3 (140-440); Red Blood Count 3.37 M/mm3 (3.65-5.03); Red Cell Distribution Width 17.1 % (13.2-15.2)
[2020-03-14 08:33] LABS: BUN/Creatinine Ratio 19; Blood Urea Nitrogen 13 mg/dL (7-17); Calcium 9.8 mg/dL (8.4-10.2); Chol/HDL Ratio 2.68 %; HDL Cholesterol 60 mg/dL (40-59); Hemolysis Index 4; LDL Cholesterol,Direct 98 mg/dL (50-130)
[2020-03-14] MEDS: INSULIN LISPRO 100 UNIT/ML SUB-Q SCH ×3 (09:49→16:24)
[2020-03-14] MEDS: FAMOTIDINE 10 MG TAB PO SCH (09:49)
[2020-03-14] MEDS ORDERED: ASPIRIN 325 MG TAB PO SCH (10:00)
--- NOTE | 2020-03-14 10:06 | Discharge Summary ---
Providers - Providers Date of Admission: 03/13/20 11:49 Attending physician: DARYL SMITH MD 03/13/20 12:16 Consult to Case Management [CONS] Routine Services Needed at Discharge: Mailroom Supervisor Notified:: CM Consult to Dietitian/Nutrition [CONS] Routine Physician Instructions: Reason For Exam: Reason for Consult: Nutrition Recommendations Reason for Consult: Diet education Consult to Physician [CONS] Routine Comment: Consulting Provider: SANTOS COLLIER Physician Instructions: Reason For Exam: CVA Occupational Therapy Evaluate and Treat [CONS] Routine Comment: Reason For Exam: Neuro deficits Physical Therapy Evaluation and Treat [CONS] Routine Comment: Reason For Exam: Neuro deficits 03/13/20 12:21 Speech Therapy Evaluation and Treat [CONS] Routine Reason For Exam: DYSPHAGIA [facility] Condition: Stable Hospital course: 54-year-old female with past medical history of diabetes undiagnosed not on any medication presenting to the ED with right upper and lower extremity weakness, dysarthria. Recently stopped aspirin 162 mg a week ago for a breast biopsy that was done on March 03. Unfortunately had not restarted this. Not sure why she was on aspirin in the first place. MRI of the head shows a subacute left paramedian pontine infarct. MRA MRI of the neck. IMPRESSION: 1. No significant stenosis or large vessel occlusion in the neck arteries 03/14: Stroke identified. Continue physical therapy evaluation await echocardiogram prior to discharge. Adjust insulin therapy.. Continue antiplatelets and statin therapy. Right hemiparesis Strongly suspect CVA Diabetes mellitus with hyperglycemia new diagnosis Status post hysterectomy Recent breast biopsy Morbidly obese Plan of care. Admit to telemetry Stroke protocol Aspirin, statin therapy Neurology consult Obtain MRI of the head and MRA of the head and neck carotid ultrasound and echocardiogram check lipid profile Check A1c start on sliding scale coverage. Diabetic education PT OT evaluation and treat Plan of care discussed in detail with the patient Disposition: [id number] HOME UNDER HOME [facility] Time spent for discharge: 35 mins Core Measure Documentation - Palliative Care Palliative Care/ Comfort Measures: Not Applicable - Core Measures Any of the following diagnoses?: none Exam - Physical Exam Narrative exam: VITAL SIGNS: Reviewed. GENERAL: The patient appears normally developed, Vital signs as documented. HEAD: No signs of head trauma. EYES: Pupils are equal. Extraocular motions intact. EARS: Hearing grossly intact. MOUTH: Oropharynx is normal. NECK: No adenopathy, no JVD. CHEST: Chest with clear breath sounds bilaterally. No wheezes, rales, or rhonchi. CARDIAC: Regular rate and rhythm. S1 and S2, without murmurs, gallops, or rubs. VASCULAR: No Edema. Peripheral pulses normal and equal in all extremities. ABDOMEN: Soft, non tender and non distended. No rebound or guarding, and no masses palpated. Bowel Sounds normal. MUSCULOSKELETAL: Good range of motion of all major joints. Extremities without clubbing, cyanosis or edema. NEUROLOGIC EXAM: Alert and oriented x 3 4/5 motor strength in the right upper and lower extremity 5/5 on the left. Dysarthric speech with notable left facial droop however mild . Follows commands. PSYCHIATRIC: Mood normal. SKIN: detail exam as documented in skin assessment - Constitutional Vitals: Temp Pulse Resp BP Pulse Ox 98.4 F 83 18 115/73 96 03/14/20 07:54 03/14/20 09:30 03/14/20 07:54 03/14/20 07:54 03/14/20 07:54 Plan Activity: advance as tolerated, fall precautions Diet: low fat Special Instructions: record daily weights, record daily BP diary, record blood sugar diary, physical therapy, occupational therapy Follow up with: CLOVIS SABA MD [Primary Care Provider] - 3-5 Days Prescriptions: Insulin Glargine [Lantus VIAL] 20 units SUB-Q QHS 30 Days units AtorvaSTATin [Lipitor] 40 mg PO QHS #30 tablet Aspirin 325 mg PO QDAY #30 tablet Insulin Regular, Human [HumuLIN R] 0 unit SQ AC #1 vial Famotidine [Pepcid] 10 mg PO BID #60 tablet Other Discharge Orders: Glucometer (Amb) Location: None Selected Glucometer supplies[Amb] Location: None Selected
[2020-03-14] MEDS: ONDANSETRON 4 MG/2 ML INJ IV PRN (13:19)
[2020-03-14] MEDS: METOCLOPRAMIDE 10 MG TAB PO PRN (13:21)
[2020-03-14 16:22] VITALS: BP 115/83
== END 2020-03-14 19:12 | disposition home health service (06) | DRG 65 ==
LOC: ED 10:32 → 4A 11:49
PROVIDERS: ADMIT Internal Medicine; ATTEND Internal Medicine
DX: I63.9 Cerebral infarction, unspecified (principal); G81.91 Hemiplegia, unspecified affecting right dominant side; R47.1 Dysarthria and anarthria; E11.65 Type 2 diabetes mellitus with hyperglycemia; E66.01 Morbid (severe) obesity due to excess calories; I10 Essential (primary) hypertension; Z68.41 Body mass index [BMI] 40.0-44.9, adult; Z90.710 Acquired absence of both cervix and uterus; Z82.49 Family history of ischemic heart disease and other diseases of the circulatory system; Z83.3 Family history of diabetes mellitus; Z88.5 Allergy status to narcotic agent
CPT/HCPCS: 36415; 70450; 70544; 70547; 70551; 80048; 80061; 82962; 83036; 84484; 85025; 85610; 85730; 93005; 93306; 93880; G0378; A9270-GY; J1815; J2405